=== PATIENT | male | born 1985 | race Caucasian/White ===

== ENCOUNTER 2021-08-25 09:37 | Emergency (ER) | payer BC, SELFPAY ==
[2021-08-25 09:38] VITALS: BP 134/83; PULSE 87; RESP 18; TEMP 36.8; O2SAT 100; BMI 20.9
--- NOTE | 2021-08-25 10:03 | EKG12_ITS ---
Test Reason : SOB Blood Pressure : / mmHG Vent. Rate : 073 BPM Atrial Rate : 073 BPM P-R Int : 168 ms QRS Dur : 090 ms QT Int : 380 ms P-R-T Axes : 074 059 074 degrees QTc Int : 418 ms Normal sinus rhythm Normal ECG Confirmed by OLLIE LOONEY, CRISTAL ([id number]), story editor THADDEUS ANAND ([id number]) on 08/26/2021 2:24:20 P M Referred By: WAYLON Confirmed By:DANNY LEVIN MD
--- NOTE | 2021-08-25 10:03 | RAD_ITS ---
STUDY: X-RAY CHEST REASON FOR EXAM: Male, 35 years old. Chest pain TECHNIQUE: Single AP portable view of the chest. COMPARISON: None. FINDINGS: EKG electrodes are seen. The lungs are clear and expanded. There is no demonstrated pleural abnormality. Normal size heart. Normal mediastinum and mauricio. Normal visualized pulmonary arteries. Normal visualized aortic arch and descending thoracic aorta. Normal visualized thoracic spine. Normal visualized ribs, clavicles, and shoulders. There is no demonstrated abnormality of the visualized soft tissue structures of the upper abdomen. RAD/Chest 1 View (Portable) IMPRESSION: Normal x-ray examination of the chest. Electronically Signed: Sergio Whitney MD at 12:02 EST , Service support ,
--- NOTE | 2021-08-25 10:04 | EDS_ITS ---
HPI History of Present Illness Chief Complaint: Shortness of Breath Informant: patient Onset/Context/Timing Onset: Month(s) Context: gradual Timing: Intermittent Current Severity: Mild Maximum Severity: Mild Worsened by: Nothing Relieved by: Nothing Associated Symptoms Negative for cough, fever, sore throat, subjective, chills or green sputum Chest Pain: Positive for None; Negative for Pleuritic and Pressure Narrative Narrative: 35-year-old male no sniffing past medical history. For the last 2 months he has had subjective dyspnea. She is also a 20 pound weight loss because he is not been eating well. He has been more anxious. He has been to urgent care twice with negative work-ups and [facility] in [place] he had a negative work-up. He said he is even had a Covid test that was negative. He really denies any fever chills or cough. No hemoptysis. No cardiac history. No history of DVT or PE no risk factors. PE Risk Factors: Negative for Cancer, OCP + Smoking + > 35, Prior DVT or PE, Recent immobilization, Recent surgery and Recent travel Prior similar symptoms: Yes Recent Illness/Hospitalization: No PFSH PFSH Medical History no medical history Home Medications lorazepam [Ativan] 1 mg PO DAILY PRN 7 Days #7 tab 08/25/21 [Rx Last Taken Unknown] Allergy/AdvReac Type Severity Reaction Status Date / Time No Known Allergies Allergy Verified 08/25/21 09:41 Surgical History no surgical history Social History Smoking Status: Former smoker ROS ROS ED ROS Narrative Denies recent illness. Weight loss. Subjective dyspnea. Review of Systems ROS Unobtainable: Denies due to encephalopathy Constitutional Constitutional ED: Denies fever(s) Eyes Eyes: Denies change in vision ENT ENT ED: Denies ear pain Cardiovascular Cardiovascular: Denies chest pain Respiratory/Chest Respiratory/Chest: Reports dyspnea; Denies cough Gastrointestinal Gastrointestinal: Denies abdominal pain, diarrhea, nausea or vomiting Genitourinary Genitourinary ED: Denies dysuria Musculoskeletal Musculoskeletal: Denies myalgias Integumentary Denies rash Neurologic Neurologic: Denies headache(s) Psychiatric Psychiatric: Denies depression Endocrine Endocrinology: Denies polyuria Hematologic/Lymphatic Hematologic/Lymphatic: Denies easy bruising Allergic/Immunologic Allergic/Immunologic ED: Denies urticaria EXAM Physical Exam Narrative Exam Narrative: 35-year-old male no acute distress vital signs stable afebrile. Pulse ox 100%. Pulse 87. H EENT exam unremarkable. Neck nontender no JVD no lymphadenopathy. Lungs clear to auscultation bilaterally. Heart regular rate and rhythm rate about 85 no murmur. Abdomen soft nontender normal bowel sounds no peritoneal signs. Moving all 4 extremities. Neurovascular intact. Calves are nontender without edema or cords. Radial pulses equal symmetrical. Back nontender. Neurologically he is awake alert with no focal motor deficits. Normal exam. Const Vital Signs: 08/25/21 09:38 08/25/21 10:22 08/25/21 10:25 Temperature 98.2 F 98.2 F Temperature Source Temporal Temporal Pulse Rate 87 82 Respiratory Rate 18 16 Respiratory Effort Normal Non-Labored Respiratory Depth Normal Respiratory Pattern Normal Blood Pressure 134/83 H 110/75 Blood Pressure Mean 100 86 Pulse Ox 100 98 Oxygen Delivery Method Room Air Room Air Room Air Positive well nourished and well developed; Negative for obese, cachectic, contractures or unkempt General Appearance ED: well developed and NAD; Negative for unkempt, cachectic or contractures Nutritional Appearance: Negative for cachectic or obese HEENT Reports moist mucous membranes atraumatic Eyes PERRL and EOMs intact bilaterally Neck no lymphadenopathy, supple, no meningeal signs and no JVD General: Negative for tenderness Resp normal respiratory effort and clear to auscultation bilaterally Auscultation: Negative for rales, rhonchi or wheezes Cardio regular rate, regular rhythm, S1 normal heart sound, S2 normal heart sound and no murmurs GI non-tender, non-distended and no masses Auscultation: normoactive bowel sounds Palpation: soft; Negative for tender, guarding or rebound tenderness present Back/Spine no CVA tenderness and normal to inspection General Back: Negative for CVA tenderness or tenderness Extremity normal to inspection General Extremety ED: Negative for edema or tenderness General Extremity: Negative for edema Neuro oriented x3 and CN's II-XII intact bilaterally Sensorium / Orientation: alert, oriented to person, oriented to place and oriented to time; Negative for orientation impaired, confused, lethargic or stuporous Motor Exam: strength 5/5 throughout Psych mental status grossly normal Appearance: Negative for unkempt Skin no wounds Lesions: no lesions Rashes: no rashes MDM MDM MDM Narrative Medical decision making narrative: 35-year-old male with subjective dyspnea. Exam normal. Consider cardiac etiology. He is also had a weight loss. This could also be secondary to anxiety. Screening labs, chest x-ray and EKG are being obtained. Repeat exam at 12:56 PM patient is doing well. He and I went over all his test results. He will be discharged home. He and I believe his father was in the room discussed anxiety and treatments. Lab Data Attestation: I reviewed the patient's lab results. Lab results narrative: CBC White count 7 hemoglobin 13. Normal platelets. Electrolytes gap of 5 normal BUN and creatinine. Troponin IV TSH 1.46. Labs: Laboratory Results - last 24 hr 08/25/21 08/25/21 10:22 10:22 WBC 7.1 RBC 4.45 L Hgb 13.3 Hct 40.3 MCV 90.6 MCH 29.9 MCHC 33.0 RDW Std Deviation 40.2 RDW Coeff of Yoni 12.2 Plt Count 292 MPV 9.0 Immature Gran % (Auto) 0.300 Neut % (Auto) 61.1 Lymph % (Auto) 29.0 [place] % (Auto) 7.2 Eos % (Auto) 1.8 Baso % (Auto) 0.6 Absolute Neuts (auto) 4.3 Absolute Lymphs (auto) 2.05 Nucleated RBC % 0 Sodium 142 Potassium 3.7 Chloride 110 H Carbon Dioxide 27.0 Anion Gap 5 BUN 13 Creatinine 1.12 Estim Creat Clear Calc 92.88 Est GFR (MDRD) Af Amer 97 Est GFR (MDRD) Non-Af 80 BUN/Creatinine Ratio 11.6 Glucose 88 Calcium 8.4 L Troponin I High Sens 4 TSH 1.46 Radiography Chest X-Ray - ED: 1 View, Read by ED Physician, Normal, Heart, Lungs, Mediastinum, Bony Structures and No Acute Disease Diagnostic Testing: Clinical Impression(s) from Imaging Studies Chest X-Ray 08/25/21 10:03 IMPRESSION: Normal x-ray examination of the chest. Electronically Signed: Sergio Whitney MD at 12:02 EST , Service support , Portable chest x-ray 1 view interpreted by myself and radiologist shows no acute abnormality. Rhythm Strip Rhythm Strip: Sinus Rhythm Rate: 73 Ectopy: None EKG Initial EKG: Attestation: I personally reviewed and interpreted this EKG as follows: Interpretation: Sinus Rhythm and No Acute Injury Pattern Comments: Normal sinus rhythm rate of 73 no acute signs of LA or ischemia nor dysrhythmia. Prior EKG tracings: not available for review Discharge Plan Triage Chief Complaint: Shortness of Breath ED Provider: Constantine Hsu Dx/Rx/DC Orders Clinical Impression: Dyspnea, Anxiety Instructions: Anxiety Disorders Tx Therapy, ED Dyspnea Prescriptions: New lorazepam [Ativan] 1 mg tablet 1 mg PO DAILY PRN (Reason: anxiety) 7 Days Qty: 7 RF: 0 Primary Care Provider: Javon Anton Referrals: Javon Anton MD [Primary Care Provider] - 1 Week if not improving Activity Restrictions/Additional Instructions: Ativan as needed for anxiety. No driving or alcohol or operating heavy equipment if using the Ativan. Follow-up with your primary care provider Consider multiple forms of treatment for your anxiety such as meditation, exercise, reading about it or counseling. Also there is obviously medication degree put on. Disposition Disposition: Home, Self Care
[2021-08-25 10:22] VITALS: BP 110/75; PULSE 82; RESP 16; RESP 19; TEMP 36.8; O2SAT 98
[2021-08-25 10:25] VITALS: O2SAT 98
[2021-08-25 10:34] LABS: Absolute Lymphocyte Count 2.05 X10^3/uL (0.83-4.51); Absolute Neutrophil Count 4.3 X10^3/uL (2.0-7.7); Basophil# 0.04 X10^3/uL; Basophil% 0.6 % (0-1); Eosinophil# 0.13 X10^3/uL; Eosinophils% 1.8 % (0-5); Hematocrit 40.3 % (40-54); Hemoglobin 13.3 g/dL (13.0-16.5); Lymphocyte # 2.05 X10^3/ul (0.83-4.51); Mean Corpuscular Hgb 29.9 pg (27.0-32.0); Mean Corpuscular Volume 90.6 fL (80-94); Monocyte# 0.51 X10^3/uL; Monocyte% 7.2 % (0-10); NRBC Flagged by Analyzer 0 % (0-5); Neutrophil # 4.32 X10^3/uL (2.7-7.7); Neutrophil % 61.1 % (47-70); Platelet Count 292 K/mm3 (150-450); RBC Distribution Width CV 12.2 % (11.6-14.6); RBC Distribution Width SD 40.2 fl (35.1-43.9); Red Blood Count 4.45 M/mm3 (4.6-6.2); White Blood Count 7.1 K/mm3 (4.4-11.0)
[2021-08-25 10:56] LABS: Anion Gap 5 (5-15); BUN 13 mg/dL (7-18); BUN/Creat Ratio 11.6 RATIO (10-20); Calcium,Total 8.4 mg/dL (8.5-10.1); Chloride 110 mmol/L (98-107); Creatinine, Serum 1.12 mg/dL (0.70-1.30); EST Glomerular Filtration Rate 80 mL/min (>60); Est Glom Filt Rate - Afr Amer 97 mL/min (>60); Estimated Creatinine Clearance 92.88 ml/min; Glucose 88 mg/dL (74-106); Potassium 3.7 mmol/L (3.5-5.1); Sodium Level 142 mmol/L (136-145); Thyroid Stim Hormone (TSH) 1.46 uIU/mL (0.358-3.74); Troponin-I HS 4 pg/mL (3.0-78.0)
[2021-08-25 13:27] VITALS: BP 109/76; PULSE 68; RESP 16; O2SAT 97
== END 2021-08-25 13:28 | disposition home or self-care (01) ==
PROVIDERS: Emergency Provider Emergency Medicine; PCP Internal Medicine
DX: F41.9 Anxiety disorder, unspecified (principal); R06.00 Dyspnea, unspecified; Z87.891 Personal history of nicotine dependence
CPT/HCPCS: 71045; 80048; 84443; 84484; 85025; 93005; 99285; A4216